=== PATIENT | male | born 1980 | race Two or more races ===

== ENCOUNTER 2023-08-03 02:35 | Emergency (ER) | payer SELFPAY ==
[2023-08-03] MEDS ORDERED: Acetaminophen 325 MG Tab PO ONE (02:56)
[2023-08-03] MEDS ORDERED: Penicillin V Potassium 500 MG Tab PO STA (02:57)
[2023-08-03] MEDS: Ibuprofen 400 MG Tab PO ONE ×2 (03:01→03:06)
[2023-08-03] MEDS ORDERED: Benzocaine 20% Topical Spray UD MUCMEM ONE (03:07)
[2023-08-03] MEDS ORDERED: Lidocaine 2% Viscous Solution 15 ML UD PO STA (03:10)
== END 2023-08-03 03:38 | disposition home or self-care (01) ==
LOC: MW.ED 02:35
DX: K08.89 Other specified disorders of teeth and supporting structures (principal); E11.9 Type 2 diabetes mellitus without complications; I10 Essential (primary) hypertension; Z79.84 Long term (current) use of oral hypoglycemic drugs
CPT/HCPCS: 99282; A9270; 99283